=== PATIENT | male | born 1950 | race Caucasian/White ===

== ENCOUNTER → 2020-01-18 09:10 | Outpatient (CLI) | payer MEDICARE, SELFPAY ==
--- NOTE | ~2020-01-18 | XR_ITS ---
EXAMINATION: XR chest 2V 01/18/2020 09:37 INDICATION: Personal history of nicotine dependence PROCEDURE: 2 view chest COMPARISON: Comparison to multiple prior studies sequentially, with oldest reviewed study dated 12/18. FINDINGS: There is nodular asymmetry at the left lung apex. The cardiomediastinal silhouette is withi n normal limits. There are no pleural effusions. There is no pneumothorax suspected. IMPRESSION: 1: Nodular asymmetry left lung apex. Follow-up CT chest with contrast recommended. Reviewed, dictated and finalized at location A. IMPRESSION: 1: Nodular asymmetry left lung apex. Follow-up CT chest with contrast recommen ded.
== END ==
PROVIDERS: PCP Family Medicine; Visit Provider Family Medicine
DX: Z87.891 Personal history of nicotine dependence (principal); R91.8 Other nonspecific abnormal finding of lung field
CPT/HCPCS: 71046

== ENCOUNTER → 2021-01-10 09:13 | Outpatient (CLI) | payer MEDICARE, SELFPAY ==
--- NOTE | ~2021-01-10 | CT_ITS ---
EXAMINATION:CT diagnostic chest wo con DATE: 01/10/2021 09:48 INDICATION: Personal history of melanoma. Pulmonary nodule. TECHNIQUE: Computed tomography (CT) of the chest was performed without intravenous contrast. Automate d exposure control and iterative reconstruction technique were employed. The dose-length product (DLP ) was 185.60 mGy-cm. COMPARISON: Chest 2 views 01/18/2020 FINDINGS: There is mild scarring at the lung apices. A calcified right lung nodule and calcified righ t hilar lymph nodes are consistent with old granulomatous disease. There is a 4 mm nodule in left low er lobe. There is a 2 mm nodule in left lower lobe. There is a 2 mm nodule in right upper lobe. No pl eural effusion. The heart size is normal. No pericardial effusion. The bones are unremarkable. IMPRESSION: 1. Small pulmonary nodules, likely benign. Reviewed, dictated and finalized at location A.
== END ==
PROVIDERS: PCP Family Medicine; Visit Provider Family Medicine
DX: Z12.2 Encounter for screening for malignant neoplasm of respiratory organs (principal); Z87.891 Personal history of nicotine dependence
CPT/HCPCS: 71250

== ENCOUNTER 2021-08-12 09:19 | Outpatient (CLI) | payer MEDICARE, SELFPAY ==
--- NOTE | ~2021-08-12 | CT_ITS ---
EXAMINATION: CT diagnostic chest wo con DATE: 08/12/2021 09:39 INDICATION: LUNG NODULES TECHNIQUE: Computed tomography (CT) of the chest was performed without intravenous contrast. Addition al 3D reconstructions utilizing coronal maximum intensity projection (MIP) were performed. Automated exposure control and iterative reconstruction technique were employed. The dose-length product was 83 .71 mGy-cm. COMPARISON: 01/10/2021 FINDINGS: Mild biapical pleural-parenchymal scarring. No interval change in multiple less than 4 mm scattered b ilateral pulmonary nodules a few calcified consistent with old granulomatous disease and several nonc alcified. A few are positioned along the bilateral major fissures likely represent normal intrafissur al lymph nodes. No new or enlarging nodules identified. No pneumonia, pulmonary edema or pleural effu chasity. Calcified infrahilar lymph nodes consistent with old granulomatous disease. No pathologically e nlarged thoracic lymphadenopathy. Heart size is normal. Atherosclerotic coronary artery calcific loca tion. No pericardial effusion. Visualized upper abdomen and bones are unremarkable. IMPRESSION: 1. No interval change in multiple scattered <4 mm calcified and noncalcified pulmonary nodules, likel y benign. Reviewed, dictated and finalized at location B. [employer] IMPRESSION: 1. No interval change in multiple scattered <4 mm calcified and noncalcified pu lmonary nodules, likely benign.
== END 2021-08-12 09:20 | disposition home or self-care (01) ==
PROVIDERS: PCP Family Medicine; Visit Provider Internal Medicine Hematology & Oncology
DX: R92.8 Other abnormal and inconclusive findings on diagnostic imaging of breast (principal)
CPT/HCPCS: 71250

== ENCOUNTER 2022-08-18 08:31 | Outpatient (CLI) | payer MEDICARE, SELFPAY ==
--- NOTE | ~2022-08-18 | CT_ITS ---
EXAMINATION: CT diagnostic chest wo con DATE: 08/18/2022 09:04 INDICATION: LUNG NODULES TECHNIQUE: Computed tomography (CT) of the chest was performed without intravenous contrast. Addition al 3D reconstructions utilizing coronal maximum intensity projection (MIP) were performed. Automated exposure control and iterative reconstruction technique were employed. The dose-length product was 99 .15 mGy-cm. COMPARISON: 08/12/2021 FINDINGS: Mild biapical pleural-parenchymal scarring. No interval change in multiple less than 4 mm scattered b ilateral pulmonary nodules a few noncalcified and a few calcified consistent with old granulomatous d isease. A few are positioned along the bilateral major fissures likely represent normal intrafissural lymph nodes. No new or enlarging pulmonary nodules identified. No pneumonia, pulmonary edema or pleu ral effusion. Calcified infrahilar lymph nodes consistent with old granulomatous disease. No patholog ically enlarged thoracic lymphadenopathy. Heart size is normal. Atherosclerotic coronary artery calci fications. Aortic valve calcification. No pericardial effusion. Thoracic aorta is normal in caliber. Visualized upper abdomen and bones are unremarkable. IMPRESSION: 1. No interval change in multiple scattered <4 mm calcified and noncalcified pulmonary nodules, likel y benign. Reviewed, dictated and finalized at location A. [employer] IMPRESSION: 1. No interval change in multiple scattered <4 mm calcified and noncalcified pu lmonary nodules, likely benign.
== END 2022-08-18 08:32 | disposition home or self-care (01) ==
PROVIDERS: PCP Family Medicine; Visit Provider Internal Medicine Hematology & Oncology
DX: R91.8 Other nonspecific abnormal finding of lung field (principal)
CPT/HCPCS: 71250

== ENCOUNTER 2023-08-17 09:37 | Outpatient (CLI) | payer MEDICARE, SELFPAY ==
--- NOTE | ~2023-08-17 | CT_ITS ---
CT Scan of the Chest without Contrast: Clinical Indication: Pulmonary nodule Technique: Contiguous sections were acquired throughout the chest without intravenous contrast. Dose reduction technique was used on this scan by utilizing automated exposure control and iterative recon struction technique. The dose-length product (DLP) was 102.88 mGy-cm. COMPARISON: 08/18/2022 Findings: There is no evidence of any significant mediastinal, hilar or axillary lymphadenopathy. The mediastin al soft tissues appear normal. There is no evidence of pleural or pericardial effusion. Tiny pulmonary nodules are unchanged. No suspicious pulmonary abnormality seen. Images through the upper abdomen reveal no abnormalities. Impression: Stable tiny pulmonary nodules, most likely benign. Reviewed, dictated and finalized at location . [employer] Impression: Stable tiny pulmonary nodules, most likely benign.
[2023-08-17 11:03] LABS: Basophils Absolute Auto 0.1 K/mm3 (0.0-0.1); Basophils Percent Auto 0.9 % (0.2-1.2); Eosinophils Absolute Auto 0.2 K/mm3 (0-0.3); Eosinophils Percent Auto 2.5 % (0-4.4); Hematocrit 40.8 % (42.0-52.0); Hemoglobin 13.6 g/dL (14.0-18.0); Immature Granulocyte Absolute 0.01 K/mm3 (0.00-0.031); Immature Granulocyte Percent A 0.1 % (0-0.5); Lymphocytes Absolute Auto 1.91 K/mm3 (0.9-3.2); Lymphocytes Percent Auto 28.4 % (18.3-44.2); Mean Corpuscular HGB Conc 33.3 g/dl (32-36); Mean Corpuscular Hemoglobin 30.8 pg (26-34); Mean Corpuscular Volume 92.5 fl (80-100); Mean Platelet Volume 9.2 fl (7.4-10.4); Monocytes Absolute Auto 0.8 K/mm3 (0.1-0.6); Neutrophils Absolute Auto 3.8 K/mm3 (1.3-6.7); Neutrophils Percent Auto 56.1 % (45.5-73.1); Platelet Count Result 233 k/mm3 (150-375); Red Blood Count 4.41 M/mm3 (4.6-6.20); Red Cell Distribution Width 12.6 % (11.5-14.5); White Blood Count 6.7 K/mm3 (4.5-10.0)
== END 2023-08-17 09:38 | disposition home or self-care (01) ==
LOC: ANHIMG 09:49
PROVIDERS: PCP Family Medicine; Visit Provider Internal Medicine Hematology & Oncology
DX: R91.8 Other nonspecific abnormal finding of lung field (principal)
CPT/HCPCS: 36415; 71250; 85025